=== PATIENT | male | born 1955 | race Caucasian/White ===

== ENCOUNTER 2018-08-01 11:37 | Emergency (ER) | payer BC ==
[2018-08-01 11:47] VITALS: TEMP 97.5; BMI 33.4
--- NOTE | 2018-08-01 12:12 | PDOC ---
History of Present Illness - General Chief Complaint: Chest Pain Stated Complaint: CHEST PAIN - History of Present Illness Initial Comments: The pt is a 63M w/ no reported PMH who presents for evaluation of chest pain that occurred 5 days prior to presentation. The pt reports exertional, substernal, chest pressure w/o radiation that lasted for approximately 15 seconds on saturday while climbing stairs. He denies any associated symptoms including SOB, PEGUERO, vision changes, N/V, diaphoresis, or changes in strength/ sensation. He denies ever having had this sensation before and denies having any symptoms since that time. Denies any symptoms today. FH: Denies any HI/stroke </= 50y PSH: appy Meds: ASA 81mg daily SH: Denies x3 08/01/18 12:38 Past History - Past Medical History Allergies/Adverse Reactions: Allergies Allergy/AdvReac Type Severity Reaction Status Date / Time No Known Allergies Allergy Verified 08/01/18 11:47 COPD: No - Suicide/Smoking/Psychosocial Hx Smoking History: Former smoker Have you smoked in the past 12 months: No If you are a former smoker, when did you quit?: 1999 Information on smoking cessation initiated: No Hx Alcohol Use: No Drug/Substance Use Hx: No Review of Systems - Review of Systems Able to Perform ROS?: Yes Comments:: GENERAL/CONSTITUTIONAL: No fever or chills. No weakness HEAD, EYES, EARS, NOSE AND THROAT: No change in vision. No ear pain or discharge. No sore throat CARDIOVASCULAR: No chest pain or shortness of breath RESPIRATORY: Denies cough, hemoptysis GASTROINTESTINAL: No nausea, vomiting, diarrhea or constipation GENITOURINARY: No dysuria, frequency, or change in urination MUSCULOSKELETAL: No joint or muscle swelling or pain. No neck or back pain SKIN: No rash NEUROLOGIC: No headache, vertigo, loss of consciousness, or change in strength/ sensation ENDOCRINE: No increased thirst. No abnormal weight change HEMATOLOGIC/LYMPHATIC: No anemia, easy bleeding, or history of blood clots ALLERGIC/IMMUNOLOGIC: No hives or skin allergy 08/01/18 12:14 Is the patient limited Divehi proficient: No *Physical Exam - Vital Signs Last Vital Signs Temp Pulse Resp BP Pulse Ox 97.5 F L 76 18 145/72 100 08/01/18 11:37 08/01/18 11:37 08/01/18 11:37 08/01/18 11:37 08/01/18 11:37 - Physical Exam Comments: GENERAL: Awake, alert, and oriented to person/place/time, in no acute distress HEAD: No signs of trauma, normocephalic, atraumatic EYES: PERRLA, EOMI, sclera anicteric, conjunctiva clear ENT: Hearing grossly normal, nares patent, oropharynx clear without exudates. No uvular deviation. Moist mucosa LUNGS: No distress, speaks full sentences, clear to auscultation bilaterally HEART: Regular rate and rhythm, normal S1 and S2, no murmurs appreciated, peripheral pulses normal and equal bilaterally ABDOMEN: Soft, nontender, normoactive bowel sounds. No guarding, no rebound EXTREMITIES: Normal inspection, Normal range of motion, no edema. No clubbing or cyanosis NEUROLOGICAL: Cranial nerves II through XII grossly intact. Normal speech, normal gait, no focal sensorimotor deficits SKIN: Warm, Dry 08/01/18 12:14 ED Treatment Course - LABORATORY CBC & Chemistry Diagram: 08/01/18 12:36 08/01/18 12:36 Medical Decision Making - Medical Decision Making ED Course Labs sent ECG CXR ECG w/ NSR; HR 74; QTc 439; no evidence of acute ischemia 08/01/18 12:43 *DC/Admit/Observation/Transfer Diagnosis at time of Disposition: Chest pain Qualifiers: Chest pain type: unspecified Qualified Code(s): R07.9 - Chest pain, unspecified - Discharge Dispostion Condition at time of disposition: Stable Decision to Admit order: No - Referrals Referrals: Blaze Reilly [Primary Care Provider] - - Patient Instructions Printed Discharge Instructions: DI for Chest Pain Additional Instructions: You were seen in the Emergency Department for evaluation of chest pain. Your labs and imaging were unremarkable. Review the handout provided at discharge. Follow up with your primary care provider within a week. Return to the Emergency Department if you develop fevers/chills, chest pain, trouble breathing , nausea/vomiting, worsening symptoms, or any new/concerning symptoms. - Post Discharge Activity
[2018-08-01 12:46] LABS: EOS % 0.5 % (0-4.5); HEMATOCRIT 42.4 % (35.4-49); HEMOGLOBIN 14.1 GM/dL (11.7-16.9); MCH 30.1 pg (25.7-33.7); MCHC 33.3 g/dl (32.0-35.9); MEAN CELL VOLUME 90.2 fl (80-96); MEAN PLT VOLUME 8.7 fl (7.5-11.1); MONO % 10.4 % (3.8-10.2); NEUT % 65.1 % (42.8-82.8); PLATELET COUNT 258 K/MM3 (134-434); RBC 4.69 M/mm3 (4.00-5.60); RDW 13.9 % (11.9-15.9); WHITE BLOOD COUNT 9.6 K/mm3 (4.0-10.0)
[2018-08-01 13:20] LABS: ALK PHOS 71 U/L (45-117); ANION GAP 6 MMOL/L (8-16); BILIRUBIN,TOTAL 0.6 mg/dL (0.2-1); BLOOD UREA NITROGEN 17 mg/dL (7-18); CALCIUM 9.3 mg/dL (8.5-10.1); CHLORIDE 103 mmol/L (98-107); CO2 25 mmol/L (21-32); CREATININE 0.7 mg/dL (0.55-1.3); GLUCOSE,RANDOM 91 mg/dL (74-106); POTASSIUM 4.1 mmol/L (3.5-5.1); SGOT/AST 20 U/L (15-37); SGPT/ALT 24 U/L (13-61); SODIUM 135 mmol/L (136-145)
[2018-08-01 14:52] VITALS: BP 140/68; PULSE 72
--- NOTE | 2018-08-01 14:59 | PDOC ---
Documentation entered by Ashli Balbuena SCRIBE, acting as scribe for Maria De Jesus Cota MD. Maria De Jesus Cota MD: This documentation has been prepared by the Esha resendiz Daisy, SCRIBE, under my direction and personally reviewed by me in its entirety. I confirm that the documentation accurately reflects all work, treatment, procedures, and medical decision making performed by me. Attending Attestation - Resident Resident Name: Ramesh Hernandez - ED Attending Attestation I have performed the following: I have examined & evaluated the patient, The case was reviewed & discussed with the resident, I agree w/resident's findings & plan - HPI HPI: 08/01/18 12:50 The patient is a 63 YOM with no reported PMH who presents to the ER for chest pain five days ago. He states the chest pain was substernal, lasting for 15 seconds and began shortly after quickly going up the escalators, which resolved on its own. Denies any cardiac history. Denies any positive family cardiac history. Patient is currently asymptomatic. Allergies: NKDA PSH: appendectomy Social history: Former smoker 20 years ago. Denies drug or alcohol use. - Physicial Exam PE: 08/01/18 13:07 ADULT EXAM GENERAL: Awake, alert, and fully oriented, in no acute distress ENT: Auricles normal inspection, hearing grossly normal, nares patent, oropharynx clear without exudates. Moist mucosa NECK: Normal ROM, supple, no lymphadenopathy, JVD, or masses LUNGS: Breath sounds equal, clear to auscultation bilaterally. No wheezes, and no crackles HEART: Regular rate and rhythm, normal S1 and S2, no murmurs, rubs or gallops ABDOMEN: Soft, nontender, normoactive bowel sounds. No guarding, no rebound. No masses EXTREMITIES: Normal range of motion, no edema. No clubbing or cyanosis. No cords, erythema, or tenderness NEUROLOGICAL: Cranial nerves II through XII grossly intact. Normal speech, normal gait SKIN: Warm, Dry, normal turgor, no rashes or lesions noted. - Medical Decision Making 08/01/18 14:48 Pt presents to the ED complaining of atypical chest pain 5 days ago. No recurrent episodes. no risk factors for cardiac disease. EKG is normal. HEART Score is 1. Patient is extremely low risk for ACS. Will discharge home with instructions to follow up with PMD. 08/01/18 14:49 08/01/18 14:51
--- NOTE | 2018-08-02 08:29 | EKG ---
Test Reason : Blood Pressure : / mmHG Vent. Rate : 074 BPM Atrial Rate : 074 BPM P-R Int : 148 ms QRS Dur : 090 ms QT Int : 396 ms P-R-T Axes : 055 045 050 degrees QTc Int : 439 ms NORMAL SINUS RHYTHM NORMAL ECG NO PREVIOUS ECGS AVAILABLE Confirmed by MOUNA SPRINGER, MEG ([id number]) on 08/02/2018 8:28:55 AM Referred By: Confirmed By:MEG FREIRE MD
== END 2018-08-01 14:56 | disposition home or self-care (01) ==
LOC: JER 11:37
DX: R07.9 Chest pain, unspecified (principal); Z87.891 Personal history of nicotine dependence
CPT/HCPCS: 36415; 71045-TC-FY; 80053; 82550; 84484; 85025; 93005; 93010; 99282-25